=== PATIENT | male | born 1960 | race Caucasian/White ===

== ENCOUNTER 2016-06-25 09:44 | Emergency (ER) | payer OTHER ==
[~2016-06-25] VITALS: Ht 162.6 cm; Wt 106.4 kg
[~2016-06-25 09:44] MED LIST: ABILIFY15 MG PO; ACID CONTROL150 MG PO; ADVAIR 250/501 DISK IH; ADVAIR HFA120 INHALA IH; ALBUTEROL SULF8.5 GM IH; AMBIEN10 MG PO; AMITRIPTYLINE H25 MG PO; AMITRIPTYLINE H50 MG PO; ASPIR-LOW81 MG PO; ASPIRIN81 M2 PO; ATORVASTATIN CA40 MG PO; AUGMENTIN875 MG PO; AZITHROMYCIN500 M1 PO; BACLOFEN10 MG PO; BACTRIM,SEPT1 TABLET PO; BENTYL10 MG PO; BENTYL20 MG PO; CARBIDOPA/LEVO1 EACH PO; CIPRO500 MG PO; CLONAZEPAM1 MG PO; COLACE100 MG PO; COMBIVENT RESPIM4 GM IH; COUMADIN2 MG PO; CULTURELLE CAP1 EACH PO; DEPAKOTE ER500 MG PO; DEPAKOTE250 MG PO; DEPAKOTE500 MG PO; DICYCLOMINE HCL20 MG PO; DIPROSONE 0.05%15 GM TP; DIVALPROEX SOD500 M1 PO; DOCUSATE SODIU100 MG PO; DOXEPIN HCL50 MG PO; DOXYCYCLINE HY100 M1 PO; DULCOLAX5 MG PO; Dilaudid PO; ELAVIL25 MG PO; FIBER TABS625 MG PO; FIBERCON625 MG PO; FLAGYL500 MG PO; FLOMAX0.4 MG PO; FLOVENT 11120 INHALA IH; FUTURO RESTORI1 EACH MC; GEODON40 MG PO; GEODON80 MG PO; HYDROCODON-ACE1 EAC7 PO; IMODIUM MS REL1 EACH PO; INDERAL LA160 MG PO; INDERAL40 MG PO; INDERAL80 MG PO; KEFLEX500 MG PO; KENALOG,ARISTOC80 GM TP; KLONOPIN0.5 M1 PO; KLONOPIN1 MG PO; KRISTALOSE20 GM PO; LEVOTHYROXINE50 MCG PO; LISINOPRIL20 MG PO; LO-DOSE ASPIRIN81 M2 PO; LOPRESSOR25 MG PO; LOVENOX100 MG/1 M SC; MECLIZINE HCL25 MG PO; MEDROL DOSEPAK4 MG PO; MELATONIN3 MG PO; MIRALAX17 GM PO; MIRALAX255 GM PO; MOBIC15 MG PO; NAPROSYN500 MG PO; NAPROXEN500 MG PO; NEURONTIN300 MG PO; NICOTINE PATCH1 EAC2 TD; NITROSTAT0.4 MG SL; NORCO 5/3251 TABLET PO; NORVASC5 MG PO; PANTOPRAZOLE SO40 MG PO; PERCOCET 5/31 TABLET PO; POLYETHYLENE GL17 GM PO; PRAVASTATIN SOD40 MG PO; PREDNISONE10 M1 PO; PREDNISONE10 MG PO; PREDNISONE20 MG PO; PREDNISONE50 MG PO; PRILOSEC20 MG PO; PRINIVIL20 MG PO; PROAIR HFA8.5 GM IH; PROMETHAZINE HC25 M1 PO; PROSCAR5 MG PO; PROVENTIL,2.5 MG/3 M IH; Phenergan PO; Protonix PO; QUETIAPINE FUM100 MG PO; QUETIAPINE FUM400 MG PO; QVAR 40 MCG IN7.3 GM IH; REGLAN10 MG PO; RESTORIL15 MG PO; RESTORIL30 MG PO; Remeron PO; SEROQUEL200 MG PO; SEROQUEL300 MG PO; SEROQUEL400 MG PO; SEROQUEL50 MG PO; SINGULAIR10 MG PO; SORIATANE10 MG PO; SYMBICORT60 INHALA1 IH; SYNTHROID50 MCG PO; TAMSULOSIN HCL0.4 MG PO; TEMAZEPAM15 MG PO; TEMAZEPAM30 MG PO; TIROSINT50 MCG PO; TRAMADOL HCL50 MG PO; TRIAMCINOLONE A15 G1 TP; TRIAMCINOLONE A15 G2 TP; TYLENOL WITH C1 EACH PO; URECHOLINE25 MG PO; VALIUM2 MG PO; VALIUM5 MG PO; XARELTO1 EACH PO; XARELTO15 MG PO; XARELTO20 MG PO; ZANTAC150 MG PO; ZITHROMAX Z-PA250 MG PO; ZOCOR40 MG PO; ZOFRAN ODT4 MG PO; ZOFRAN4 MG PO; ZOLPIDEM TARTRA10 MG PO; [UNRECOGNIZED DRUG - REMARK] BOTH EARS
[2016-06-25] MEDS ORDERED: PERCOCET 5/31 TABLET PO (13:29)
[2016-06-25 15:03] VITALS: BP 117/84
== END 2016-06-25 15:03 | disposition home or self-care (01) ==
LOC: EME → EDBD 09:44 → EME 15:03
PROC: 3E0234Z Introduction of Serum, Toxoid and Vaccine into Muscle, Percutaneous Approach (ICD-10-PCS; principal; 2016-06-25)
DX: S82.142A Displaced bicondylar fracture of left tibia, initial encounter for closed fracture (principal); S60.311A Abrasion of right thumb, initial encounter; M25.572 Pain in left ankle and joints of left foot; V29.40XA Motorcycle driver injured in collision with unspecified motor vehicles in traffic accident, initial encounter; I10 Essential (primary) hypertension; Z86.711 Personal history of pulmonary embolism; Z86.718 Personal history of other venous thrombosis and embolism; G89.29 Other chronic pain; Z87.891 Personal history of nicotine dependence
CPT/HCPCS: 73140; 73564; 73590; 73610; 73700; 99281; 99285

== ENCOUNTER 2016-06-25 18:13 | Emergency (ER) | payer OTHER ==
[~2016-06-25] VITALS: Ht 162.6 cm; Wt 102.0 kg
[2016-06-25 20:45] VITALS: BP 139/85
== END 2016-06-25 20:55 | disposition home or self-care (01) ==
LOC: EME → EDBD 18:13 → EME 18:13
DX: M79.605 Pain in left leg (principal); S82.142D Displaced bicondylar fracture of left tibia, subsequent encounter for closed fracture with routine healing; I10 Essential (primary) hypertension; I25.2 Old myocardial infarction; V29.9XXD Motorcycle rider (driver) (passenger) injured in unspecified traffic accident, subsequent encounter
CPT/HCPCS: 99281; 99283

== ENCOUNTER 2016-06-30 14:40 | Emergency (ER) | payer OTHER ==
[~2016-06-30] VITALS: Ht 162.6 cm; Wt 103.2 kg
[2016-06-30 16:53] LABS: HEMATOCRIT 38.7 % (38.0-50.0); MCH 32.8 PG (29.0-34.0); MCHC 35.4 G/DL (30.0-36.0); MCV 92.6 FL (86-99); MEAN PLAT.VOLUME 8.4 uM^3 (9.0-12.4); PLATELET COUNT 257 K/uL (156-360); RBC DIS.WIDTH-CV 12.2 % (11.8-14.6); RBC DIS.WIDTH-SD 39.9 % (39-53); RED BLOOD COUNT 4.18 M/uL (4.00-5.50); WHITE BLOOD COUNT 4.5 K/uL (4.1-10.2)
[2016-06-30 17:03] LABS: CHLORIDE 100 mEq/L (99-109); POTASSIUM 4.5 mEq/L (3.7-5.4); SODIUM 138 mEq/L (136-147)
[2016-06-30 17:04] LABS: GLUCOSE 100 mg/dL (70-99)
[2016-06-30 17:06] LABS: ANION GAP 13 MEQ/L (2-14)
[2016-06-30 17:08] LABS: GFR ESTIMATE (CALCULATED) > 59 mL/min/
[2016-06-30 17:09] LABS: INTER. NORMALIZED RATIO 1.1; PROTHROMBIN TIME 11.7 (9.2-11.2); PTT 28.1 (25-32); UREA NITROGEN (BUN) 19 mg/dL (9-23)
[2016-06-30 17:11] LABS: CREATINE KINASE 127 IU/L (1-294); TOTAL CK 127 IU/L (1-294)
[2016-06-30 17:16] LABS: CK-MB 0.8 ng/mL (0.0-4.9)
[2016-06-30 21:09] VITALS: BP 152/89
== END 2016-06-30 21:04 | disposition home or self-care (01) ==
LOC: EME 14:40
PROVIDERS: Emergency Medicine
DX: S82.142A Displaced bicondylar fracture of left tibia, initial encounter for closed fracture (principal); V89.2XXA Person injured in unspecified motor-vehicle accident, traffic, initial encounter; Y92.410 Unspecified street and highway as the place of occurrence of the external cause; J45.909 Unspecified asthma, uncomplicated; J44.9 Chronic obstructive pulmonary disease, unspecified; F31.9 Bipolar disorder, unspecified; G89.29 Other chronic pain; I10 Essential (primary) hypertension; I25.2 Old myocardial infarction; G20 Parkinson's disease; Z79.82 Long term (current) use of aspirin; Z87.891 Personal history of nicotine dependence
CPT/HCPCS: 73560; 80048; 82550; 82553; 85027; 85610; 85730; 93971; 99281; 99284; J2270; J2405

== ENCOUNTER 2016-07-04 17:00 | Emergency (ER) | payer OTHER ==
[~2016-07-04] VITALS: Ht 162.6 cm; Wt 106.1 kg
[2016-07-04 20:03] VITALS: BP 137/88
== END 2016-07-04 20:03 | disposition home or self-care (01) ==
LOC: EME 17:00
DX: K59.00 Constipation, unspecified (principal); J45.909 Unspecified asthma, uncomplicated; J44.9 Chronic obstructive pulmonary disease, unspecified; I10 Essential (primary) hypertension; I25.2 Old myocardial infarction; Z91.5 Personal history of self-harm; G20 Parkinson's disease; Z87.891 Personal history of nicotine dependence; Z79.82 Long term (current) use of aspirin
CPT/HCPCS: 74020; 99281; 99284

== ENCOUNTER 2016-07-27 19:27 | Emergency (ER) | payer OTHER ==
[~2016-07-27] VITALS: Ht 162.6 cm; Wt 103.2 kg
[2016-07-27 20:10] LABS: HEMATOCRIT 35.7 % (38.0-50.0); MCH 31.1 PG (29.0-34.0); MCHC 33.9 G/DL (30.0-36.0); MCV 91.8 FL (86-99); RBC DIS.WIDTH-CV 12.4 % (11.8-14.6); RBC DIS.WIDTH-SD 40.6 % (39-53); RED BLOOD COUNT 3.89 M/uL (4.00-5.50); WHITE BLOOD COUNT 4.6 K/uL (4.1-10.2)
[2016-07-27 20:19] LABS: MEAN PLAT.VOLUME 8.6 uM^3 (9.0-12.4)
[2016-07-27 20:26] LABS: CHLORIDE 105 mEq/L (99-109); POTASSIUM 4.6 mEq/L (3.7-5.4); SODIUM 142 mEq/L (136-147)
[2016-07-27 20:28] LABS: GLUCOSE 111 mg/dL (70-99)
[2016-07-27 20:30] LABS: TOTAL BILIRUBIN 0.2 mg/dL (0.0-1.0)
[2016-07-27 20:31] LABS: ALKALINE PHOSPHATASE 64 IU/L (3-129); GFR ESTIMATE (CALCULATED) > 59 mL/min/
[2016-07-27 20:33] LABS: UREA NITROGEN (BUN) 5 mg/dL (9-23)
[2016-07-27 20:41] LABS: PLATELET COUNT 345 K/uL (156-360)
[2016-07-27 20:46] LABS: ADD MIUA? YES; BILIRUBIN NEGATIVE; BLOOD NEGATIVE; COLOR YELLOW ((YELLOW)); GLUCOSE (STRIP) NEGATIVE; KETONES NEGATIVE; LEUKOCYTES NEGATIVE; NITRITE NEGATIVE; PROTEIN (STRIP) 30; SPECIFIC GRAVITY 1.015 (1.000-1.030); UROBILINOGEN 0.2 MG/DL (0.2-1.0)
[2016-07-27 20:54] LABS: SAMPLE HEMOLYSIS CHECK 0; SAMPLE ICTERIC CHECK 0; SAMPLE LIPEMIA CHECK 0
[2016-07-27 21:03] LABS: BACTERIA NONE SEEN /HPF; EPITHELIAL CELLS RARE /HPF; MUCUS TRACE /LPF; RED BLOOD CELLS 0-5 /HPF (0-5); UCUL ADDED? NO; UNCLASSIFIED CRYSTALS 1+ /HPF; WHITE BLOOD CELLS 0-5 /HPF (0-5)
[2016-07-27 21:05] LABS: CASTS NONE SEEN /LPF; CRYSTALS NONE SEEN
[2016-07-27] MEDS ORDERED: BENTYL20 MG PO (21:56)
[2016-07-27] MEDS ORDERED: ZOFRAN ODT4 MG PO (21:56)
[2016-07-27 22:20] VITALS: BP 144/79
== END 2016-07-27 22:21 | disposition home or self-care (01) ==
LOC: EME 19:27
DX: R10.9 Unspecified abdominal pain (principal); R11.2 Nausea with vomiting, unspecified; R19.7 Diarrhea, unspecified; J44.9 Chronic obstructive pulmonary disease, unspecified; J45.909 Unspecified asthma, uncomplicated; I10 Essential (primary) hypertension; I25.2 Old myocardial infarction; Z87.891 Personal history of nicotine dependence
CPT/HCPCS: 80053; 81003; 85027; 99281; 99283

== ENCOUNTER 2016-07-31 19:03 | Emergency (ER) | payer OTHER ==
[~2016-07-31] VITALS: Ht 162.6 cm; Wt 99.8 kg
[2016-07-31 19:53] LABS: HEMATOCRIT 32.6 % (38.0-50.0); MCH 31.2 PG (29.0-34.0); MCV 91.6 FL (86-99); RBC DIS.WIDTH-CV 12.9 % (11.8-14.6); RBC DIS.WIDTH-SD 41.7 % (39-53); RED BLOOD COUNT 3.56 M/uL (4.00-5.50); WHITE BLOOD COUNT 4.7 K/uL (4.1-10.2)
[2016-07-31 19:58] LABS: MEAN PLAT.VOLUME 9.1 uM^3 (9.0-12.4)
[2016-07-31 19:59] LABS: PLATELET COUNT 226 K/uL (156-360)
[2016-07-31 20:01] LABS: D-DIMER ELISA 2.42 mg/L FEU (< 0.57)
[2016-07-31 20:05] LABS: CHLORIDE 105 mEq/L (99-109); SODIUM 138 mEq/L (136-147)
[2016-07-31 20:07] LABS: GLUCOSE 110 mg/dL (70-99)
[2016-07-31 20:09] LABS: ANION GAP 9 MEQ/L (2-14)
[2016-07-31 20:11] LABS: ALKALINE PHOSPHATASE 62 IU/L (3-129); GFR ESTIMATE (CALCULATED) > 59 mL/min/
[2016-07-31 20:12] LABS: UREA NITROGEN (BUN) 8 mg/dL (9-23)
[2016-07-31 20:14] LABS: LIPASE 16 U/L (1.0-51.0)
[2016-07-31 20:15] LABS: TOTAL BILIRUBIN 0.3 mg/dL (0.0-1.0)
[2016-07-31 20:17] LABS: TROP-I INTERPRETATION NEGATIVE; TROPONIN-I < 0.01 ng/mL (0.0-0.30)
[2016-07-31 23:48] VITALS: BP 160/98
== END 2016-07-31 23:48 | disposition home or self-care (01) ==
LOC: EME 19:03
PROVIDERS: Physician Assistant
DX: R10.9 Unspecified abdominal pain (principal); R07.9 Chest pain, unspecified; J44.9 Chronic obstructive pulmonary disease, unspecified; J45.909 Unspecified asthma, uncomplicated; Z87.891 Personal history of nicotine dependence
CPT/HCPCS: 71020; 71275; 74177; 80053; 83690; 84484; 85027; 85379; 93005; 94640; 99281; 99284

== ENCOUNTER 2016-10-22 18:22 | Emergency (ER) | payer OTHER ==
[~2016-10-22] VITALS: Ht 162.6 cm; Wt 95.8 kg
[2016-10-22 19:47] LABS: HEMATOCRIT 38.1 % (38.0-50.0); MCH 31.7 PG (29.0-34.0); MCHC 34.6 G/DL (30.0-36.0); MCV 91.4 FL (86-99); PLATELET COUNT 307 K/uL (156-360); RBC DIS.WIDTH-CV 14.1 % (11.8-14.6); RBC DIS.WIDTH-SD 47.5 % (39-53); RED BLOOD COUNT 4.17 M/uL (4.00-5.50)
[2016-10-22 19:59] LABS: CHLORIDE 103 mEq/L (99-109); POTASSIUM 4.5 mEq/L (3.7-5.4); SODIUM 135 mEq/L (136-147)
[2016-10-22 20:01] LABS: GLUCOSE 97 mg/dL (70-99)
[2016-10-22 20:02] LABS: ANION GAP 10 MEQ/L (2-14)
[2016-10-22 20:03] LABS: TOTAL BILIRUBIN 0.4 mg/dL (0.0-1.0)
[2016-10-22 20:05] LABS: ALKALINE PHOSPHATASE 56 IU/L (3-129); GFR ESTIMATE (CALCULATED) > 59 mL/min/
[2016-10-22 20:06] LABS: UREA NITROGEN (BUN) 7 mg/dL (9-23)
[2016-10-22 20:08] LABS: LIPASE 10 U/L (1.0-51.0)
[2016-10-22] MEDS ORDERED: PEPCID40 MG PO (21:03)
[2016-10-22 21:27] VITALS: BP 141/94
== END 2016-10-22 21:28 | disposition home or self-care (01) ==
LOC: EME → EDBD 18:22 → EME 18:22
DX: R10.9 Unspecified abdominal pain (principal); R19.7 Diarrhea, unspecified; Z90.49 Acquired absence of other specified parts of digestive tract; J44.9 Chronic obstructive pulmonary disease, unspecified; J45.909 Unspecified asthma, uncomplicated; Z79.82 Long term (current) use of aspirin; Z72.0 Tobacco use
CPT/HCPCS: 74176; 80053; 81003; 83690; 85027; J2270; J2405; J7030

== ENCOUNTER 2016-11-22 20:32 | Observation (INO) | payer OTHER ==
[~2016-11-22] VITALS: Ht 162.6 cm; Wt 93.0 kg
[~2016-11-22 20:32] MED LIST changes: +PEPCID40 MG PO
[2016-11-22 21:20] LABS: HEMATOCRIT 40.2 % (38.0-50.0); MCH 32.4 PG (29.0-34.0); MCHC 34.8 G/DL (30.0-36.0); MCV 93.1 FL (86-99); MEAN PLAT.VOLUME 9.1 uM^3 (9.0-12.4); PLATELET COUNT 281 K/uL (156-360); RBC DIS.WIDTH-CV 13.3 % (11.8-14.6); RBC DIS.WIDTH-SD 45.1 % (39-53); RED BLOOD COUNT 4.32 M/uL (4.00-5.50)
[2016-11-22 21:27] LABS: CHLORIDE 102 mEq/L (99-109); POTASSIUM 3.9 mEq/L (3.7-5.4); SODIUM 140 mEq/L (136-147)
[2016-11-22 21:29] LABS: GLUCOSE 114 mg/dL (70-99)
[2016-11-22 21:30] LABS: ANION GAP 16 MEQ/L (2-14)
[2016-11-22 21:33] LABS: GFR ESTIMATE (CALCULATED) > 59 mL/min/
[2016-11-22 21:34] LABS: UREA NITROGEN (BUN) 17 mg/dL (9-23)
[2016-11-22 21:40] LABS: TROP-I INTERPRETATION NEGATIVE; TROPONIN-I < 0.01 ng/mL (0.0-0.30)
[2016-11-22 22:27] LABS: TOTAL BILIRUBIN 0.5 mg/dL (0.0-1.0)
[2016-11-22 22:28] LABS: ALKALINE PHOSPHATASE 62 IU/L (3-129)
[2016-11-22 22:31] LABS: DIRECT BILIRUBIN 0.2 mg/dL (0.0-0.3)
[2016-11-23 05:25] VITALS: BP 127/80
[2016-11-23 06:26] LABS: D-DIMER ELISA 0.86 mg/L FEU (< 0.57)
[2016-11-23 06:47] LABS: TROP-I INTERPRETATION NEGATIVE; TROPONIN-I 0.02 ng/mL (0.0-0.30)
[2016-11-23 08:38] VITALS: BP 134/86
[2016-11-23 11:08] LABS: TROP-I INTERPRETATION NEGATIVE; TROPONIN-I < 0.01 ng/mL (0.0-0.30)
[2016-11-23 13:23] LABS: ANION GAP 12 MEQ/L (2-14); CHLORIDE 102 MEQ/L (99-109); POTASSIUM 4.4 MEQ/L (3.7-5.4); SAMPLE HEMOLYSIS CHECK 2; SAMPLE ICTERIC CHECK 0; SAMPLE LIPEMIA CHECK 0; SODIUM 140 MEQ/L (136-147); TOTAL BILIRUBIN 0.6 MG/DL (0.0-1.0)
[2016-11-23 13:28] LABS: ALKALINE PHOSPHATASE 60 IU/L (3-129); GFR ESTIMATE (CALCULATED) > 59 mL/min/; GLUCOSE 111 mg/dL (70-99); UREA NITROGEN (BUN) 21 mg/dL (9-23)
[2016-11-23 13:32] LABS: TROP-I INTERPRETATION NEGATIVE; TROPONIN-I < 0.01 ng/mL (0.0-0.30)
[2016-11-23] MEDS ORDERED: ZOFRAN4 MG PO (14:53)
[2016-11-23] MEDS ORDERED: PANTOPRAZOLE SO40 MG PO (14:54)
[2016-11-23] MEDS ORDERED: BENTYL20 MG PO (14:54)
== END 2016-11-23 16:20 | disposition home or self-care (01) ==
LOC: EME 20:32 → EDOF 11-23 04:10 → 5WEST 11-23 05:16
PROVIDERS: Hospitalist; Nurse Practitioner Family
DX: R07.2 Precordial pain (principal); R10.84 Generalized abdominal pain; Z86.711 Personal history of pulmonary embolism; Z86.718 Personal history of other venous thrombosis and embolism; I25.10 Atherosclerotic heart disease of native coronary artery without angina pectoris; J44.9 Chronic obstructive pulmonary disease, unspecified; F32.9 Major depressive disorder, single episode, unspecified; E03.9 Hypothyroidism, unspecified; I10 Essential (primary) hypertension; G43.909 Migraine, unspecified, not intractable, without status migrainosus; F17.210 Nicotine dependence, cigarettes, uncomplicated; Z95.5 Presence of coronary angioplasty implant and graft; E78.5 Hyperlipidemia, unspecified; R06.02 Shortness of breath
CPT/HCPCS: 71020; 71275; 74176; 80048; 80053; 80076; 84484; 85027; 85379; 93005; 99281; 99285; C9113; G0378; J1650; J2270; J2765

== ENCOUNTER 2016-11-27 19:19 | Emergency (ER) | payer OTHER ==
[~2016-11-27] VITALS: Ht 162.6 cm; Wt 90.2 kg
[2016-11-27 20:45] LABS: EOSINOPHIL (%) 5.4 % (0-5); EOSINOPHIL COUNT 0.2 K/uL (0-0.3); HEMATOCRIT 36.2 % (38.0-50.0); INSTRUMENT ABS NEUTROPHIL CT 2.2 K/uL; LYMPHOCYTE COUNT 1.1 K/uL (1.0-2.8); MCH 32.5 PG (29.0-34.0); MCHC 35.4 G/DL (30.0-36.0); MCV 91.9 FL (86-99); MEAN PLAT.VOLUME 9.3 uM^3 (9.0-12.4); MONOCYTE (%) 12.7 % (3-12); MONOCYTE COUNT 0.5 K/uL (0-0.8); NEUTROPHIL (%) 54.5 % (45-76); NEUTROPHIL COUNT 2.2 K/uL (1.8-6.4); PLATELET COUNT 244 K/uL (156-360); RBC DIS.WIDTH-SD 43.8 % (39-53); RED BLOOD COUNT 3.94 M/uL (4.00-5.50); WHITE BLOOD COUNT 4.1 K/uL (4.1-10.2)
[2016-11-27 20:59] LABS: CHLORIDE 102 mEq/L (99-109); SODIUM 138 mEq/L (136-147)
[2016-11-27 21:01] LABS: GLUCOSE 101 mg/dL (70-99)
[2016-11-27 21:02] LABS: ANION GAP 12 MEQ/L (2-14)
[2016-11-27 21:03] LABS: POTASSIUM 3.5 mEq/L (3.7-5.4); TOTAL BILIRUBIN 0.2 mg/dL (0.0-1.0)
[2016-11-27 21:04] LABS: ALKALINE PHOSPHATASE 57 IU/L (3-129)
[2016-11-27 21:05] LABS: GFR ESTIMATE (CALCULATED) > 59 mL/min/
[2016-11-27 21:06] LABS: UREA NITROGEN (BUN) 13 mg/dL (9-23)
[2016-11-27 21:08] LABS: LIPASE 18 U/L (1.0-51.0)
[2016-11-27 23:40] VITALS: BP 139/87
== END 2016-11-27 23:41 | disposition home or self-care (01) ==
LOC: EME 19:19
PROVIDERS: Emergency Medicine
DX: R10.32 Left lower quadrant pain (principal); G89.29 Other chronic pain; R19.7 Diarrhea, unspecified; R11.10 Vomiting, unspecified; J44.9 Chronic obstructive pulmonary disease, unspecified; J45.909 Unspecified asthma, uncomplicated; Z90.49 Acquired absence of other specified parts of digestive tract; Z79.82 Long term (current) use of aspirin; F17.200 Nicotine dependence, unspecified, uncomplicated
CPT/HCPCS: 80053; 81003; 83690; 85025; 87493; 87506; 99281; 99284; C9113; J0500; J7030

== ENCOUNTER 2017-02-04 23:03 | Observation (INO) | payer OTHER ==
[~2017-02-04] VITALS: Ht 162.6 cm; Wt 99.7 kg
[2017-02-04 23:26] LABS: HEMATOCRIT 38.3 % (38.0-50.0); MCH 32.9 PG (29.0-34.0); MCHC 35.5 G/DL (30.0-36.0); MCV 92.7 FL (86-99); PLATELET COUNT 284 K/uL (156-360); RBC DIS.WIDTH-CV 12.5 % (11.8-14.6); RBC DIS.WIDTH-SD 42.9 % (39-53); RED BLOOD COUNT 4.13 M/uL (4.00-5.50)
[2017-02-04 23:48] LABS: TROP-I INTERPRETATION NEGATIVE; TROPONIN-I < 0.01 ng/mL (0.0-0.30)
[2017-02-05 00:03] LABS: INTER. NORMALIZED RATIO 1.1; PROTHROMBIN TIME 12.3 SEC (10.2-12.9)
[2017-02-05 00:04] LABS: CHLORIDE 105 mEq/L (99-109); POTASSIUM 4.7 mEq/L (3.7-5.4); SODIUM 139 mEq/L (136-147)
[2017-02-05 00:05] LABS: D-DIMER ELISA < 150.00 ng/mLDDU (<230); PTT 26.6 SEC (25-37)
[2017-02-05 00:06] LABS: GLUCOSE 108 mg/dL (70-99)
[2017-02-05 00:07] LABS: ANION GAP 10 MEQ/L (2-14)
[2017-02-05 00:10] LABS: GFR ESTIMATE (CALCULATED) > 59 mL/min/
[2017-02-05 00:11] LABS: UREA NITROGEN (BUN) 8 mg/dL (9-23)
[2017-02-05 01:00] LABS: TOTAL BILIRUBIN 0.4 mg/dL (0.0-1.0)
[2017-02-05 01:01] LABS: ALKALINE PHOSPHATASE 64 IU/L (3-129)
[2017-02-05 01:04] LABS: DIRECT BILIRUBIN 0.1 mg/dL (0.0-0.3)
[2017-02-05 01:05] LABS: LIPASE 9 U/L (1.0-51.0)
[2017-02-05 04:34] LABS: TROP-I INTERPRETATION NEGATIVE; TROPONIN-I < 0.01 ng/mL (0.0-0.30)
[2017-02-05 04:39] VITALS: BP 143/87
[2017-02-05 08:06] VITALS: BP 128/79
[2017-02-05 11:29] LABS: TROP-I INTERPRETATION NEGATIVE; TROPONIN-I < 0.01 ng/mL (0.0-0.30)
[2017-02-05] MEDS ORDERED: DICYCLOMINE HCL20 MG PO (13:01)
[2017-02-05] MEDS ORDERED: COLACE100 MG PO (13:04)
[2017-02-05] MEDS ORDERED: AZITHROMYCIN500 M1 PO (14:03)
[2017-02-05] MEDS ORDERED: ATORVASTATIN CA40 MG PO (14:03)
[2017-02-05] MEDS ORDERED: ADVAIR HFA120 INHALA IH (14:04)
[2017-02-05] MEDS ORDERED: VENTOLIN HFA18 GM IH (14:04)
[2017-02-05] MEDS ORDERED: PREDNISONE10 MG PO (14:04)
[2017-02-05] MEDS ORDERED: SPIRIVA RESPIMAT4 GM IH (14:04)
[2017-02-05] MEDS ORDERED: CYANOCOBALAM1000 MCG PO (14:05)
[2017-02-05] MEDS ORDERED: AMLODIPINE BESYL5 MG PO (15:02)
== END 2017-02-05 16:06 | disposition home or self-care (01) ==
LOC: EME → EDBD 23:03 → EDOF 02-05 03:16 → ENRESERV 02-05 03:17 → 5WEST 02-05 04:27
PROVIDERS: Emergency Medicine; Hospitalist
DX: R07.89 Other chest pain (principal); J44.1 Chronic obstructive pulmonary disease with (acute) exacerbation; R00.2 Palpitations; Z86.718 Personal history of other venous thrombosis and embolism; Z86.711 Personal history of pulmonary embolism; K21.9 Gastro-esophageal reflux disease without esophagitis; I10 Essential (primary) hypertension; E03.9 Hypothyroidism, unspecified; E53.8 Deficiency of other specified B group vitamins; F17.200 Nicotine dependence, unspecified, uncomplicated; F31.9 Bipolar disorder, unspecified; E66.9 Obesity, unspecified; Z68.37 Body mass index [BMI] 37.0-37.9, adult; R47.81 Slurred speech; F79 Unspecified intellectual disabilities; L40.9 Psoriasis, unspecified; Z87.11 Personal history of peptic ulcer disease; Z98.890 Other specified postprocedural states; Z82.49 Family history of ischemic heart disease and other diseases of the circulatory system; Z80.1 Family history of malignant neoplasm of trachea, bronchus and lung
CPT/HCPCS: 71020; 80048; 80076; 83690; 84484; 85027; 85379; 85610; 85610 GA; 85730; 85730 GA; 93005; 94640; 99202; 99281; 99285; G0378; J1644; J2270; J7512; S0028

== ENCOUNTER 2017-02-15 11:01 | Emergency (ER) | payer OTHER ==
[~2017-02-15] VITALS: Ht 162.6 cm; Wt 96.0 kg
[~2017-02-15 11:01] MED LIST changes: +AMLODIPINE BESYL5 MG PO; +CYANOCOBALAM1000 MCG PO; +SPIRIVA RESPIMAT4 GM IH; +VENTOLIN HFA18 GM IH
[2017-02-15 11:48] LABS: EOSINOPHIL (%) 2.9 % (0-5); EOSINOPHIL COUNT 0.1 K/uL (0-0.3); IMMATURE GRANULOCYTE COUNT 0.1 K/uL; INSTRUMENT ABS NEUTROPHIL CT 3.1 K/uL; MCH 33.3 PG (29.0-34.0); MCHC 35.5 G/DL (30.0-36.0); MCV 93.9 FL (86-99); MONOCYTE (%) 12.9 % (3-12); MONOCYTE COUNT 0.6 K/uL (0-0.8); NEUTROPHIL (%) 62.4 % (45-76); NEUTROPHIL COUNT 3.1 K/uL (1.8-6.4); PLATELET COUNT 226 K/uL (156-360); RBC DIS.WIDTH-SD 44.4 % (39-53); RED BLOOD COUNT 4.26 M/uL (4.00-5.50); WHITE BLOOD COUNT 4.9 K/uL (4.1-10.2)
[2017-02-15 11:54] LABS: INTER. NORMALIZED RATIO 1.1; PROTHROMBIN TIME 11.7 SEC (10.2-12.9)
[2017-02-15 11:57] LABS: CHLORIDE 106 mEq/L (99-109); PTT 26.6 SEC (25-37); SODIUM 139 mEq/L (136-147)
[2017-02-15 11:59] LABS: GLUCOSE 101 mg/dL (70-99)
[2017-02-15 12:01] LABS: ANION GAP 9 MEQ/L (2-14)
[2017-02-15 12:03] LABS: GFR ESTIMATE (CALCULATED) > 59 mL/min/
[2017-02-15 12:04] LABS: UREA NITROGEN (BUN) 16 mg/dL (9-23)
[2017-02-15 12:10] LABS: TROP-I INTERPRETATION NEGATIVE; TROPONIN-I 0.02 ng/mL (0.0-0.30)
[2017-02-15 14:08] LABS: TROP-I INTERPRETATION NEGATIVE; TROPONIN-I 0.03 ng/mL (0.0-0.30)
[2017-02-15 14:41] VITALS: BP 136/81
== END 2017-02-15 14:42 | disposition home or self-care (01) ==
LOC: EME 11:01
PROVIDERS: Emergency Medicine
DX: R07.89 Other chest pain (principal); I10 Essential (primary) hypertension; I25.2 Old myocardial infarction; F17.200 Nicotine dependence, unspecified, uncomplicated; G20 Parkinson's disease; J44.9 Chronic obstructive pulmonary disease, unspecified
CPT/HCPCS: 71010; 80048; 84484; 85025; 85610; 85730; 93005; 99281; 99284

== ENCOUNTER 2017-06-25 01:57 | Emergency (ER) | payer OTHER ==
[~2017-06-25] VITALS: Ht 162.6 cm; Wt 98.5 kg
[2017-06-25 02:07] VITALS: BP 133/82
== END 2017-06-25 02:55 | disposition left against medical advice (07) ==
LOC: EME 01:57
DX: R10.9 Unspecified abdominal pain (principal); Z53.21 Procedure and treatment not carried out due to patient leaving prior to being seen by health care provider
CPT/HCPCS: 99281

== ENCOUNTER 2017-10-16 01:49 | Emergency (ER) | payer OTHER ==
[~2017-10-16] VITALS: Ht 162.6 cm; Wt 100.8 kg
[2017-10-16] MEDS ORDERED: ULTRAM50 MG PO (03:12)
[2017-10-16] MEDS ORDERED: NAPROSYN500 MG PO (03:12)
[2017-10-16 03:20] VITALS: BP 139/81
== END 2017-10-16 03:20 | disposition home or self-care (01) ==
LOC: EME → EDBD 01:49 → EME 01:49
DX: M54.5 Low back pain (principal); J44.9 Chronic obstructive pulmonary disease, unspecified; I10 Essential (primary) hypertension; G20 Parkinson's disease; I25.2 Old myocardial infarction; G43.909 Migraine, unspecified, not intractable, without status migrainosus; R29.6 Repeated falls; F31.9 Bipolar disorder, unspecified; F41.9 Anxiety disorder, unspecified; F32.9 Major depressive disorder, single episode, unspecified; F17.200 Nicotine dependence, unspecified, uncomplicated; Z79.82 Long term (current) use of aspirin; Z87.2 Personal history of diseases of the skin and subcutaneous tissue; Z98.890 Other specified postprocedural states; Z90.49 Acquired absence of other specified parts of digestive tract
CPT/HCPCS: 72100; 99281; 99283

== ENCOUNTER → 2017-12-13 | Emergency (ER) | payer OTHER ==
[~2017-12-13] VITALS: Ht 162.6 cm; Wt 97.5 kg
[~2017-12-13] MED LIST changes: +ULTRAM50 MG PO
[2017-12-13 20:15] LABS: HEMATOCRIT 41.5 % (38.0-50.0); HEMOGLOBIN 14.6 G/DL (12.5-16.6); MCH 34.1 PG (29.0-34.0); MCHC 35.2 G/DL (30.0-36.0); PLATELET COUNT 261 K/uL (156-360); RBC DIS.WIDTH-CV 13.2 % (11.8-14.6); RBC DIS.WIDTH-SD 46.9 % (39-53); RED BLOOD COUNT 4.28 M/uL (4.00-5.50)
[2017-12-13 20:32] LABS: ALBUMIN 4.3 g/dL (3.2-4.8); CHLORIDE 102 mEq/L (99-109); POTASSIUM 4.1 mEq/L (3.7-5.4); SODIUM 139 mEq/L (136-147)
[2017-12-13 20:34] LABS: GLUCOSE 103 mg/dL (70-99)
[2017-12-13 20:35] LABS: TOTAL PROTEIN 7.4 g/dL (6.4-8.3)
[2017-12-13 20:36] LABS: TOTAL BILIRUBIN 0.3 mg/dL (0.0-1.0)
[2017-12-13 20:38] LABS: ALKALINE PHOSPHATASE 60 IU/L (3-129); CREATININE 1.1 mg/dL (0.6-1.3); GFR ESTIMATE (CALCULATED) > 59 mL/min/ (58.99-99999)
[2017-12-13 20:39] LABS: UREA NITROGEN (BUN) 14 mg/dL (9-23)
[2017-12-13 20:40] LABS: AST (GOT) 32 IU/L (2-34)
[2017-12-13 20:41] LABS: ALT (GPT) 31 IU/L (3-49)
[2017-12-13 20:47] LABS: APPEARANCE SL.HAZY ((CLEAR)); BILIRUBIN NEGATIVE; BLOOD NEGATIVE; COLOR YELLOW ((YELLOW)); GLUCOSE (STRIP) NEGATIVE; KETONES NEGATIVE; LEUKOCYTES MODERATE; NITRITE NEGATIVE; PROTEIN (STRIP) 100; SPECIFIC GRAVITY 1.031 (1.000-1.030); UROBILINOGEN 0.2 MG/DL (0.2-1.0)
[2017-12-13 20:57] LABS: BACTERIA NONE SEEN /HPF; EPITHELIAL CELLS NONE SEEN /HPF; HYALINE CASTS 0-5 /LPF; MUCUS 3+ /LPF; UCUL ADDED? YES; WHITE BLOOD CELLS 40-50 /HPF (0-5)
[2017-12-13 23:43] VITALS: BP 137/111
== END | disposition home or self-care (01) ==
LOC: RME 19:27 → EME 19:27
DX: N39.0 Urinary tract infection, site not specified (principal); I10 Essential (primary) hypertension; J44.9 Chronic obstructive pulmonary disease, unspecified; G43.909 Migraine, unspecified, not intractable, without status migrainosus; L40.9 Psoriasis, unspecified; G20 Parkinson's disease; F32.9 Major depressive disorder, single episode, unspecified; F41.9 Anxiety disorder, unspecified; F31.9 Bipolar disorder, unspecified; I25.2 Old myocardial infarction; F17.210 Nicotine dependence, cigarettes, uncomplicated; Z79.82 Long term (current) use of aspirin; Z86.718 Personal history of other venous thrombosis and embolism; Z90.49 Acquired absence of other specified parts of digestive tract
CPT/HCPCS: 74176; 80053; 81003; 85027; 87086; 99281; 99284; J0500; J1885

== ENCOUNTER 2017-12-14 10:13 | Emergency (ER) | payer OTHER ==
[~2017-12-14] VITALS: Ht 162.6 cm; Wt 96.3 kg
[2017-12-14 10:47] LABS: HEMOGLOBIN 14.9 G/DL (12.5-16.6); MCHC 35.5 G/DL (30.0-36.0); MCV 95.9 FL (86-99); PLATELET COUNT 260 K/uL (156-360); RBC DIS.WIDTH-SD 46.5 % (39-53); RED BLOOD COUNT 4.38 M/uL (4.00-5.50)
[2017-12-14 10:56] LABS: ALBUMIN 4.4 g/dL (3.2-4.8); CHLORIDE 104 mEq/L (99-109); POTASSIUM 4.7 mEq/L (3.7-5.4); SODIUM 142 mEq/L (136-147)
[2017-12-14 10:59] LABS: GLUCOSE 108 mg/dL (70-99); TOTAL PROTEIN 7.4 g/dL (6.4-8.3)
[2017-12-14 11:02] LABS: ALKALINE PHOSPHATASE 59 IU/L (3-129); CREATININE 1.2 mg/dL (0.6-1.3); GFR ESTIMATE (CALCULATED) > 59 mL/min/ (58.99-99999)
[2017-12-14 11:03] LABS: UREA NITROGEN (BUN) 21 mg/dL (9-23)
[2017-12-14 11:04] LABS: AST (GOT) 30 IU/L (2-34); TOTAL BILIRUBIN 0.5 mg/dL (0.0-1.0)
[2017-12-14 11:05] LABS: ALT (GPT) 31 IU/L (3-49)
[2017-12-14] MEDS ORDERED: KEFLEX500 MG PO (12:08)
[2017-12-14] MEDS ORDERED: FLOMAX0.4 MG PO (12:08)
[2017-12-14 12:29] VITALS: BP 148/86
== END 2017-12-14 12:29 | disposition home or self-care (01) ==
LOC: EME 10:13
PROVIDERS: Physician Assistant
DX: N39.0 Urinary tract infection, site not specified (principal); N40.0 Benign prostatic hyperplasia without lower urinary tract symptoms; J44.9 Chronic obstructive pulmonary disease, unspecified; I25.2 Old myocardial infarction; I10 Essential (primary) hypertension; Z79.82 Long term (current) use of aspirin; F17.200 Nicotine dependence, unspecified, uncomplicated
CPT/HCPCS: 80053; 85027; 99281; 99284